=== PATIENT | male | born 1985 ===

== ENCOUNTER 2017-02-21 17:33 | Emergency (ER) | payer MEDICAID, OTHER ==
[~2017-02-21] VITALS: Wt 72.3 kg
[2017-02-21] MEDS ORDERED: HYDROCODONE/APAP (5/325) TAB PO ONE (18:30)
[2017-02-21] MEDS ORDERED: IBUPROFEN 600 MG TAB PO ONE (18:30)
[2017-02-21 18:51] LABS: ADD UMIC YES; UR ASCORBIC ACID NEGATIVE (NEGATIVE); UR BILIRUBIN (Dip) NEGATIVE (NEGATIVE); UR BLOOD (Dip) 2+ mg/dL (NEGATIVE); UR CLARITY CLEAR (CLEAR); UR COLOR STRAW (YELLOW); UR GLUCOSE (Dip) NEGATIVE (NEGATIVE); UR KETONES (Dip) NEGATIVE (NEGATIVE); UR LEUKOCYTE ESTERASE (Dip) NEGATIVE Leu/ul (NEGATIVE); UR NITRITE (Dip) NEGATIVE (NEGATIVE); UR RBC 0 /HPF (0-5); UR SPECIFIC GRAVITY (Dip) 1.008 (1.003-1.030); UR TOTAL PROTEIN (Dip) NEGATIVE (NEGATIVE); UR UROBILINOGEN (Dip) NEGATIVE (NEGATIVE)
--- NOTE | 2017-02-21 19:15 | RADRPT ---
PROCEDURE: US Scrotum. CLINICAL INDICATION: Right scrotal swelling. TECHNIQUE: Multiple sonographic images of the scrotal region were obtained utilizing a linear arra y transducer with grayscale and color-flow and a Doppler imaging. The images were reviewed on a high -resolution PACS workstation. COMPARISON: No prior studies are available for comparison. FINDINGS: Right hemiscrotum: Testis: Normal in size, morphology and without mass. No intratesticular arterial blood flow is dem onstrated concerning for a portion. Some intratesticular venous blood flow is seen. Testicular size is estimated at 4.3 x 3 x 2.5 centimeters. Epididymis: Not visualized. Hydrocele: Simple and large. Varicocele: None identified. Scrotal skin: Not thickened. Left hemiscrotum: Testis: Normal in size, morphology and without mass. There is normal blood flow. Testicular size i s estimated at 4.4 x 2.8 x 2.1 centimeters. Epididymis: Incidental small cyst of approximate 4 x 4 x 2 mm. No evidence of epididymitis. Hydrocele: Small and simple. Varicocele: None identified. Scrotal skin: Not thickened. RPTAT:HJJR IMPRESSION: 1. Lack of normal arterial blood flow within the right testis raises concern for testicular torsion. 2. Severe simple right-sided hydrocele. 3. Incidental left epididymal cyst and small simple left hydrocele. 4. Results are discussed by telephone with Dr. Wilkerson at 19:14 Physician Ramsey Date Time Electronically viewed and signed by Physician Ramsey on 02/21/2017 19:15 /
[2017-02-21] MEDS ORDERED: IBUP-1542 PO (19:58)
[2017-02-21] MEDS ORDERED: HYDR-902 PO (19:58)
[2017-02-21] MEDS ORDERED: CIPR500T4 PO (19:58)
--- NOTE | 2017-02-21 20:03 | ERD ---
ER Documentation Chief Complaint Chief Complaint RIGHT SWOLLEN TESTICLE HPI 31-year-old male presents with a painful right swollen testicle. He has had swelling in the right hemiscrotum for last month. He did go to all of the hospital and was referred to urology for further evaluation. Patient did not follow-up with urology as recommended. Over the last week it has become more painful and more swollen. He denies any fevers, vomiting. ROS All systems reviewed and are negative except as per history of present illness. Medications Home Meds Active Scripts Ibuprofen* (Motrin*) 600 Mg Tab, 600 MG PO Q6, #20 TAB Prov:JA GLASER MD 02/21/17 Hydrocodone/Acetaminophen ([place] 10-325 Tablet) 1 Each Tablet, 1 TAB PO Q6H Y for PAIN, #14 TAB Prov:JA GLASER MD 02/21/17 Ciprofloxacin Hcl* (Ciprofloxacin Hcl*) 500 Mg Tablet, 500 MG PO BID for 10 Days , TAB Prov:JA GLASER MD 02/21/17 Allergies Allergies: Coded Allergies: No Known Drug Allergies (Verified Allergy, Unknown, 02/21/17) PMhx/Soc Medical and Surgical Hx: pt denies Medical Hx, pt denies Surgical Hx Physical Exam Vitals Vital Signs Date Time Temp Pulse Resp B/P Pulse Ox O2 Delivery O2 Flow Rate FiO2 02/21/17 17:35 98.6 62 20 144/79 99 Physical Exam Const: [] Alert, [id number]. Head: Atraumatic Eyes: Normal Conjunctiva ENT: Normal External Ears, Nose and Mouth. Neck: Full range of motion..~ No meningismus. Resp: Clear to auscultation bilaterally Cardio: Regular rate and rhythm, no murmurs Abd: Soft, non tender, non distended. Normal bowel sounds. Right testicle is swollen and tender. No penile discharge. There is no warmth or erythema of the scrotum. Unable to elicit cremasteric reflex. Skin: No petechiae or rashes Back: No midline or flank tenderness Ext: No cyanosis, or edema Neur: Awake and alert Psych: Normal Mood and Affect Results 24 hrs Laboratory Tests Test 02/21/17 18:23 Urine Color STRAW Urine Clarity CLEAR Urine pH 6.0 Urine Specific [place] 1.008 Urine Ketones NEGATIVEmg/dL Urine Nitrite NEGATIVEmg/dL Urine Bilirubin NEGATIVEmg/dL Urine Urobilinogen NEGATIVEmg/dL Urine Leukocyte Esterase NEGATIVELeu/ul Urine Microscopic RBC 0/HPF Urine Microscopic WBC 0/HPF Urine Hemoglobin 2+mg/dL Urine Glucose NEGATIVEmg/dL Urine Total Protein NEGATIVEmg/dl Current Medications Medications (Trade) Dose Ordered Sig/Lilliana Route PRN Reason Start Time Stop Time Status Last Admin Dose Admin Ibuprofen (Motrin) 600 mg ONCE ONCE PO 02/21/17 18:30 12 18:31 DC 02/21/17 18:55 Acetaminophen/ Hydrocodone Bitart ([place] (5/325)) 1 tab ONCE ONCE PO 02/21/17 18:30 12 18:31 DC 02/21/17 18:55 Procedures/MDM Urine shows 1+ hemoglobin without leukocytes, nitrates, glucose. Testicular ultrasound shows swollen right testicle with no appreciable flow. Concerns for torsion. There is also right-sided hydrocele. dr ortiz, urology was consulted. He presented to examine the patient at bedside. Given the duration of symptoms if there is torsion right testicle is likely . Urology believes he may have epididymitis as well is recommending treatment with antibiotics, pain control and outpatient urology follow-up after treatment to reevaluate for additional causes of right testicular pain and swelling such as tumor as well as elective removal of testicle or further evaluation and treatment.. Patient should otherwise return for fevers, vomiting, new worsening symptoms. Will be treated with Cipro, [place], ibuprofen per urology recommendation and outpatient follow-up. He will be referred to local urologist as well as public facilities. The patient was stable with no new complaints during the ER course. Clinically, there is no current evidence to suggest meningitis, sepsis, acute abdomen, pneumonia, acute coronary syndrome, pulmonary embolism, or any other emergent condition appearing to require further evaluation or hospitalization. The patient should certainly return for any new or worsening symptoms per the aftercare instructions. They should otherwise follow-up with her primary care doctor for reevaluation this week. Departure Diagnosis: Primary Impression: Pain in testicle Condition: Stable Patient Instructions: Testicular Pain, Unclear Cause Referrals: [facility] URGENT CARE/SPECIALTIES Request to Evaluate for Specialty Care (Use this form only for uninsured patients) Referring Provider:JA GLASER MD Patient Date of :1985 Specialty and Clinical reason(s) for request: urology Patients Medications: cipro , motrin, norco Patients Pertinent Tests: test ultrasound Hospital Contact: [address] [place] [address] List of [facility] with Urgent Care Clinics [address] [address] 8:00am-12:00am (Midnight)(7 days a week) MEERA Carty [facility] [address] [address] 7:30am-11:00pm (7 days a week) Viji Malik [facility] [address] [facility] [place], [place] [address] 7:30am-12:00am (Midnight) 7:30am-8:00pm (Saturday,Saturday & ) Hal Barth [facility] [address] [place], [place] [address] 8:00am-11:00pm (7 days a week) Nikolas Mayen [facility] [address] [place], [place] [address] 8:00am-4:30pm (Saturday-Saturday) 8:30am-5:00pm (Saturday) [facility] [address] [place], [place] [address] 8:00am-7:30pm (Saturday-Saturday) 8:00am-4:30pm (Saturday) Clinical Services are not guaranteed as a result of this request. They are rendered based on medical necessity and are at the sole discretion of [facility] Department of Health Service's staff. The uninsured patient should bring the following ID documents: 1-Current [place] Rent Collector's License or government issued ID (such as [employer] Consular ID or passport) 2-Social Security Card (if they have) 3-Proof of address 4-Proof of income [facility] [place] Usted se velásquez hecho un examen mdico de control que le indica que no est en alberto condicin que requiera tratamiento urgente en el Departamento de Emergencia. Un estudio ms profundo y el tratamiento de martínez condicin pueden esperar sin ningn riesgo hasta que usted sea atendida/o en el consultorio de martínez mdico o alberto cl lincoln. Es responsabilidad suya arreglar alberto lani para el seguimiento del erika. MANEJO DE CONDICIONES NO URGENTES EN EL FUTURO 1) Si usted tiene un mdico de atencin primaria: Usted debera llamar a martínez mdico de atencin primaria antes de venir al departamento de emergencia. Despus de las horas de consultorio, martínez doctor o martínez asociado/a est disponible por telfono. El mdico o enfermero de anna en el servicio telefnico puede asesorarle por phuc medio para atender el problema, o erika contrario se puede programar alberto lani. 2) Si usted no tiene un mdico de atencin primaria: Llame al mdico o condado institucions de referencia que aparece abajo onofre las horas de consultorio para hacer alberto lani para que le vean. SI USTED NO PUEDE PAGAR PARA SHERIDAN UN MEDICO puede ir a: [facility] [address] [place] [address] [facility] [address] [place] [address] [facility] [address] [place] [address] [facility] [address] [place] [address] Additional Instructions: vamas a tratar para infeccion. posiblemente testiculo esta muerta. va al specialista 2-3 semanas para chequiar despues de tratamiento. Va al martínez doctor/ specialista para mas evaluacon en el proximo 2-3 semana. posiblemente necesita autorizado de martínez doctor primario para specialista. Regresa para fiebre, o mas o nueva simptomas. JA GLASER MD Feb 21, 2017 20:03
--- NOTE | 2017-02-21 20:39 | CONS ---
Date/Time of Note Date/Time of Note DATE: 02/21/17 TIME: 20:29 Assessment/Plan Assessment/Plan Chief Complaint/Hosp Course 31-year-old male had scrotal swelling about a month earlier then for about 1 week he has been having pain in the right testis. He did go to [facility] 3 weeks earlier and was told to follow-up with a specialist but he did not. Presently he does have a swollen and hard right side of the scrotum and have pain. Scrotal ultrasound showed possible torsion. On the examination the testis and epididymis are hard swollen and may well suggest epididymitis. The differential diagnosis here include: 1-right testicular torsion which is old, at least one week if not longer 2-right epididymoorchitis and in that case he will need antibiotic treatment, elevate the scrotum and take pain medications 3-testicular tumor as possible and he should follow-up in about a month to be reevaluated. I discussed with the patient all these possibilities and he knows the need for a follow-up. Problems: Consultation Date/Type/Reason Admit Date/Time Date of Consultation: Feb 21, 2017 Type of Consultation: Urology Reason for Consultation Right testicular swelling and pain Referring Provider: JA GLASER MD Hx of Present Illness This is a 31-year-old male who states about a month earlier noticed swelling of his right side of the scrotum and about 3 weeks he went to [facility] and was checked there and was told according to him to follow-up with a specialist. The patient did not see anybody and he came into the emergency room at [facility] today he states that he started having pain about a week ago in addition to the swelling. He underwent a scrotal ultrasound and that showed: 1. Lack of normal arterial blood flow within the right testis raises concern for testicular torsion. 2. Severe simple right-sided hydrocele. 3. Incidental left epididymal cyst and small simple left hydrocele. Constitutional: no complaints Eyes: no complaints ENT: no complaints Respiratory: no complaints Cardiovascular: no complaints Gastrointestinal: no complaints Genitourinary: other (Pain and swelling of the right testicle) Musculoskeletal: no complaints Skin: no complaints Neurologic: no complaints Endocrine: no complaints Lymphatic: no complaints Psychological: nl mood/affect Immunologic: no complaints Past Medical History Medical History: no pertinent history Past Surgical History Past Surgical Hx: no surgical history Family History Significant Family History: no pertinent family hx Social History Alcohol Use: other (Unknown) Smoking Status: Unknown if ever smoked Exam/Review of Systems Vital Signs Vitals Vital Signs Date Time Temp Pulse Resp B/P Pulse Ox O2 Delivery O2 Flow Rate FiO2 02/21/17 17:35 98.6 62 20 144/79 99 Exam Constitutional: alert, oriented Psych: no complaints Head: normocephalic Eyes: nl conjunctiva ENMT: nl external ears & nose Neck: supple Respiratory: normal air movement Cardiovascular: No jugular venous distention (JVD) Gastrointestinal: soft Genitourinary - Male: nl penis, other (Enlarged right scrotum. Right testis and epididymis are hard.) Extremities: normal pulses Results Results 24 hrs Laboratory Tests Test 02/21/17 18:23 Urine Color STRAW Urine Clarity CLEAR Urine pH 6.0 Urine Specific [place] 1.008 Urine Ketones NEGATIVE Urine Nitrite NEGATIVE Urine Bilirubin NEGATIVE Urine Urobilinogen NEGATIVE Urine Leukocyte Esterase NEGATIVE Urine Microscopic RBC 0 Urine Microscopic WBC 0 Urine Hemoglobin 2+ H Urine Glucose NEGATIVE Urine Total Protein NEGATIVE Imaging Free Text/Dictation Scrotal ultrasound: 1. Lack of normal arterial blood flow within the right testis raises concern for testicular torsion. 2. Severe simple right-sided hydrocele. 3. Incidental left epididymal cyst and small simple left hydrocele. YULIET BLAIR MD Feb 21, 2017 20:38
== END 2017-02-21 20:18 | disposition home or self-care (01) ==
LOC: FTE 17:33
DX: N50.811 Right testicular pain (principal)
CPT/HCPCS: 76870; 81001; 87086; Z7502; Z7610